=== PATIENT | female | born 1955 | race Caucasian/White ===

== ENCOUNTER → 2017-01-29 | Day surgery (SDC) | payer OTHER ==
[~2017-01-29] MED LIST: BUPIVACAINE/EPINEPHRINE 0.25% 50 ML VIAL ONE; KETOROLAC TROMETHAMINE 30 MG/ML (IVP) VIAL IV PUSH ONE; LACTATED RINGER'S 1000 ML INJ 1,000 ML ONE; ONDANSETRON HCL 4 MG/2 ML VIAL IV PUSH ONE; PROPOFOL 200 MG/20 ML AMP IV ONE; ceFAZolin 2 GM PREMIX 50 ML ONE; oxyCODONE/ACETAMINOPHEN 5 MG/325 MG TAB ONE
--- NOTE | 2017-02-04 13:31 | MP ---
cc: ARIELLE GURROLA MD DATE OF SURGERY: 01/29/2017 PREOPERATIVE DIAGNOSIS 1. Postmenopausal bleeding. 2. Uterine polyp. 3. Abnormal Pap. POSTOPERATIVE DIAGNOSIS 1. Postmenopausal bleeding. 2. Uterine polyp. 3. Abnormal pap INDICATIONS The patient is a 61-year-old postmenopausal female who presented to the clinic with complaints of postmenopausal bleeding, thickened endometrial stripe on ultrasound, endometrial biopsy with suggestion of benign polyp. The patient has a history of low grade sq intraepithelial lesion. She had a previous colposcopy was low grade changes and repeat Pap smear persisted to be low grade. She does have a history of a prior excisional procedure in the past. Discussed the need for surgery for the uterine polyp. Discussed excisional cervical biopsy at the same time. The patient was amenable with the care plan. PROCEDURE PERFORMED Exam under anesthesia, operative hysteroscopy with MyoSure, polypectomy, D&C, cervical LEEP. SURGEON Arielel Gurrola MD DINING CHAIR SEAT CUSHION TRIMMER [facility] [place] Staff ANESTHESIA LMA. IV FLUIDS 500 mL of lactated Ringer's. URINE OUTPUT 50 mL. ESTIMATED BLOOD LOSS Minimal. PREOPERATIVE ANTIBIOTICS Ancef 2 grams IV given pre incision. DVT PROGNOSIS SCDs to bilateral lower extremities. INTRAOPERATIVE FINDINGS Uterus 8 cm, midline. No ovarian mass palpated. Cervix shortened from previous excisions. Lugol solution applied with no defect noted. Good hemostasis after procedure. Hysteroscopy with thickened endometrium, likely polyp. SPECIMEN FOR PATHOLOGY Endometrial polyp, endometrial curettes, cervical LEEP biopsy. PROCEDURE IN DETAIL After informed consent the patient was taken to the operating room where general LMA was administered without complications. She was placed in the dorsal lithotomy position in the [facility]. The perineum was prepped in a normal sterile fashion. Exam under anesthesia was then performed. See intraoperative findings. A bivalve speculum was placed in the vagina. A single-tooth tenaculum was placed on the anterior lip of the cervix. The cervix was dilated to accommodate the MyoSure hysteroscope. The fluid deficit was 250 of normal saline after hysteroscopy. There was thickened endometrium suggestive of a polyp. The MyoSure device was used to perform a global resection. After the hysteroscope was removed a sharp curettage was performed. Good hemostasis was noted. The tenaculum was then removed. The speculum was removed. A coated speculum was then introduced. Lugol's solution was placed on the cervix. No areas of decreased absorption were noted. Given her previous Pap smear results, the LEEP procedure was performed. One pass was made with the loop electrode at a setting of 40. Coag was used to ensure hemostasis. Monsel's solution was applied. Good hemostasis was noted. The speculum was removed. The patient was placed in the dorsal supine position. Anesthesia was reversed without complication. Arielle Gurrola MD PE/SAPPHIRE /4:41 PM /1:09 PM [email or web address]
== END | disposition home or self-care (01) ==
LOC: ESDC 09:59
PROVIDERS: ATTEND Obstetrics & Gynecology
DX: N95.0 Postmenopausal bleeding (principal); N84.0 Polyp of corpus uteri
CPT/HCPCS: 00940; 00952; 57522; 58558; 88305; 88307; J0690; J1885; J2405; J3010; J7120